=== PATIENT | male | born 1955 | race Two or more races ===

== ENCOUNTER 2022-09-18 17:29 | Inpatient (IN) | payer BC, OTHER ==
[~2022-09-18] VITALS: Ht 182.9 cm; Wt 77.1 kg
--- NOTE | 2022-09-18 18:00 | NUR ---
PT PTU ON BED, PUT ON MONITOR AND PULSE . 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 PT NOT IN DISTRESS AOX4. AT BED SIDE FOR EVAL
[2022-09-18] MEDS ORDERED: ASCO-352 PO (18:43)
[2022-09-18] MEDS ORDERED: LEVA0.6320 IH (18:43)
[2022-09-18] MEDS ORDERED: ACET-868 PO (18:43)
[2022-09-18] MEDS ORDERED: ENOX40DI SQ (18:43)
[2022-09-18] MEDS ORDERED: SENN-261 PO (18:43)
[2022-09-18] MEDS ORDERED: AMIN30LI2 PO (18:43)
[2022-09-18] MEDS ORDERED: PANT40TA2 PO (18:43)
[2022-09-18] MEDS ORDERED: INSU100V27 SQ (18:43)
[2022-09-18] MEDS ORDERED: NA P133E RC (18:43)
[2022-09-18] MEDS ORDERED: MAGN400T26 PO (18:43)
[2022-09-18] MEDS ORDERED: DOCU-141 PO (18:43)
[2022-09-18] MEDS ORDERED: HYDR-4303 PO (18:43)
[2022-09-18] MEDS ORDERED: CALC1TAB30 PO (18:43)
[2022-09-18] MEDS ORDERED: INSU100V7 SQ (18:43)
[2022-09-18] MEDS ORDERED: SUCR1TAB PO (18:43)
[2022-09-18] MEDS ORDERED: AMOX1TAB16 PO (18:43)
[2022-09-18] MEDS ORDERED: MAGN400O6 PO (18:43)
[2022-09-18] MEDS ORDERED: MULT-24 PO (18:43)
[2022-09-18] MEDS ORDERED: BISA10SU11 RC (18:43)
[2022-09-18] MEDS ORDERED: ACET-2605 PO (18:43)
--- NOTE | 2022-09-18 19:01 | NUR ---
iv inserted bld drawn sent to lab
--- NOTE | 2022-09-18 19:02 | NUR ---
covid swab done sent to lab
--- NOTE | 2022-09-18 19:18 | NUR ---
MOVE SHEET SUBMITTED.
[2022-09-18 19:50] LABS: BASOPHILS # (AUTO) 0.1 K/uL (0.0-0.2); EOSINOPHILS % (AUTO) 2.9 % (0.0-6.0); HEMATOCRIT 27 % (39-51); HEMOGLOBIN 8.8 g/dL (13.5-17.5); LYMPHOCYTES # (AUTO) 1.1 K/uL (0.8-4.8); LYMPHOCYTES % (AUTO) 16.6 % (20.0-44.0); MEAN CORPUSCULAR HGB CONC 33 g/dl (31.0-36.0); MEAN CORPUSCULAR VOLUME 85 fL (80-96); MONOCYTES # (AUTO) 0.7 K/uL (0.1-1.30); MONOCYTES % (AUTO) 9.6 % (2.0-12.0); NEUTROPHILS # (AUTO) 4.8 K/uL (1.8-8.9); NEUTROPHILS % (AUTO) 69.9 % (43.0-81.0); PLATELET COUNT (AUTO) 311 K/uL (150-450); RED BLOOD CELL COUNT(AUTO) 3.19 MIL/uL (4.5-6.0); WHITE BLOOD COUNT (AUTO) 6.9 K/uL (4.3-11.0)
--- NOTE | 2022-09-18 19:53 | NUR ---
RECIEVED PT IN ER ROOM 7, FROM [facility]. PT IS ALERT AND ORIENTED. RR EVEN AND NON LABORED. POST OP RIGHT ABOVE THE KNEE AMPUTATION C/O DRAINING AND INFECTION. CONNECTED TO MONITOR.
--- NOTE | 2022-09-18 20:25 | NUR ---
PT REQUESTING FOR PAIN MEDICATION. PAIN 6/10 ON R LEG, POST AMPUTATION. MD MADE AWARE
[2022-09-18] MEDS ORDERED: IBUPROFEN 600 MG TABLET ONE (20:45)
--- NOTE | 2022-09-18 20:51 | NUR ---
[facility] CALLED BUDGET DIRECTOR PAGED.
[2022-09-18] MEDS ORDERED: IBUPROFEN 600 MG TABLET PO ONE (21:00)
[2022-09-18 21:13] LABS: BILIRUBIN,URINE NEGATIVE (NEGATIVE); COLOR,URINE YELLOW (YELLOW); LEUKOCYTE ESTERASE ,URINE NEGATIVE (NEGATIVE); NITRITE, URINE NEGATIVE (NEGATIVE); PROTEIN,URINE NEGATIVE (NEGATIVE); UGLUCOSE 1+ mg/dL (NEGATIVE); UROBILINOGEN,URINE 0.2 EU/dL (0.2)
[2022-09-18] MEDS ORDERED: BISACODYL SUPP (10 MG) 10 MG/SUPP.RECT SUPP.RECT RC PRN (21:30)
[2022-09-18] MEDS ORDERED: DEXTROSE 50%-WATER 50 ML DISP.SYRIN IV PRN (21:30)
[2022-09-18] MEDS ORDERED: LEVALBUTEROL HCL NEB 1.25 MG/0.5 ML VIAL.NEB NEB PRN (21:30)
[2022-09-18 21:31] LABS: ALBUMIN 2.3 g/dL (3.4-5.0); BILIRUBIN,DIRECT 0.2 mg/dL (0.0-0.2); BILIRUBIN,TOTAL 0.3 mg/dL (0.2-1.0); CALCIUM, SERUM 8.8 mg/dL (8.5-10.1); CREATININE 0.8 mg/dL (0.6-1.3); POTASSIUM 4.2 mmol/L (3.5-5.1); TOTAL PROTEIN, SERUM 7.5 g/dL (6.4-8.2)
[2022-09-18] MEDS: INSULIN GLARGINE, 100 UNIT/ML CARTRIDGE SQ SCH (22:00)
[2022-09-18] MEDS ORDERED: ONDANSETRON HCL/PF 4 MG/2 ML VIAL IVP PRN (22:00)
[2022-09-18] MEDS ORDERED: ZOLPIDEM TARTRATE 5 MG TABLET PO PRN (22:00)
[2022-09-18] MEDS: BLOOD SUGAR DIAGNOSTIC 1 EACH STRIP IN SCH (22:00)
[2022-09-18] MEDS ORDERED: MAG HYDROX/AL HYDROX/SIMETH 30 ML UDC PO PRN (22:00)
[2022-09-18] MEDS ORDERED: Z GUARD REMEDY 4 OZ OINT TP PRN (22:00)
[2022-09-18 22:20] LABS: RBC,URINE 0-2 /HPF (0-2); SQUAMOUS EPITHELIAL CELL,UR Rare /HPF (None Seen); WBC,URINE 0-2 /HPF (0-3)
[2022-09-18 22:21] LABS: BACTERIA,URINE Few /HPF (None Seen)
--- NOTE | 2022-09-18 23:07 | NUR ---
PATIENT TRANSFERRED TO [facility] WITH ALL BELONGINGS IN STABLE CONDITION
[2022-09-18 23:15] VITALS: BP 115/65
--- NOTE | 2022-09-18 23:15 | NUR ---
MS ANVIL SEATING PRESS OPERATOR NOTES REPORT RECEIVED FROM MACRINA. PATIENT TRANSFERRED FROM ER VIA GURNEY, WITH NO SIGNS OF DISTRESS. IV ACCESS ON THE RFA #22G, SALINE LOCK. ORIENTED PATIENT TO ROOM SET UP AND EDUCATED PATIENT ON THE USE OF CALL LIGHT. V/S TAKEN, STABLE AND RECORDED. SKIN ASSESSMENT DONE AND PICTURES TAKEN. ALL BELONGING CHECKED AND BELONGING LIST SIGNED. WILL CONTINUE TO MONITOR THE PATIENT AND WILL CARRY OUT ANY ACTIVE MD ORDERS.
[2022-09-18 23:20] VITALS: BP 115/65
[2022-09-18] MEDS ORDERED: VANCOMYCIN 1.5 GM in IV D5W 500ml IV ONE (23:30)
[2022-09-19] MEDS: SENNOSIDES 8.6 MG TABLET PO SCH ×2 (00:18→21:43)
[2022-09-19] MEDS: DOCUSATE SODIUM 100 MG CAPSULE PO SCH ×3 (00:18→16:09)
[2022-09-19] MEDS: INSULIN REGULAR, HUMAN 100 UNIT/ML 3 ML VIAL SQ PRN ×5 (00:48→22:02)
[2022-09-19] MEDS: ENOXAPARIN SODIUM 40 MG/0.4 ML DISP.SYRIN SQ SCH ×2 (01:08→21:42)
[2022-09-19] MEDS ORDERED: VANCOMYCIN 1 GM VIAL ONE ×2 (01:54→01:55)
[2022-09-19 05:56] LABS: BASOPHILS % (AUTO) 0.8 % (0.0-2.0); EOSINOPHILS % (AUTO) 3.3 % (0.0-6.0); HEMATOCRIT 28 % (39-51); HEMOGLOBIN 9.1 g/dL (13.5-17.5); LYMPHOCYTES # (AUTO) 0.9 K/uL (0.8-4.8); MEAN CORPUSCULAR HGB CONC 32 g/dl (31.0-36.0); MEAN CORPUSCULAR VOLUME 86 fL (80-96); MONOCYTES # (AUTO) 0.6 K/uL (0.1-1.30); MONOCYTES % (AUTO) 10.6 % (2.0-12.0); NEUTROPHILS # (AUTO) 3.6 K/uL (1.8-8.9); NEUTROPHILS % (AUTO) 68.3 % (43.0-81.0); PLATELET COUNT (AUTO) 278 K/uL (150-450); RED BLOOD CELL COUNT(AUTO) 3.28 MIL/uL (4.5-6.0); WHITE BLOOD COUNT (AUTO) 5.2 K/uL (4.3-11.0)
[2022-09-19] MEDS: ACETAMINOPHEN 325 MG TABLET PO PRN ×2 (06:08→14:39)
--- NOTE | 2022-09-19 06:20 | NUR ---
RN NOTES-TYLENOL GIVEN PATIENT C/O OF PAIN WITH 4/10 SCALE. TYLENOL 650MG TAB GIVEN PRN. WILL CONTINUE TO MONITOR THE PATIENT.
[2022-09-19 06:26] LABS: CALCIUM, SERUM 8.2 mg/dL (8.5-10.1); CREATININE 0.7 mg/dL (0.6-1.3); MAGNESIUM 1.9 mg/dL (1.8-2.4); PHOSPHORUS 4.6 mg/dL (2.5-4.9); POTASSIUM 4.2 mmol/L (3.5-5.1)
[2022-09-19] MEDS: BLOOD SUGAR DIAGNOSTIC 1 EACH STRIP IN SCH ×4 (06:30→21:57)
--- NOTE | 2022-09-19 06:59 | NUR ---
MS RN OPENING NOTES PATIENT AWAKE IN BED WATCHING TV. A/O X 4. NO S/S OF PAIN NOTED AT THIS TIME. ON ROOM AIR, BREATHING EVEN AND UNLABORED, NO DISTRESS OR SHORTNESS OF BREATH NOTED. IV ACCESS OF RFA #22G, SALINE LOCK, INTACT, PATENT AND FLUSHING WELL. ALL NEEDS ATTENDED. FALL AND SAFETY MEASURES MAINTAINED. WILL ENDORSE TO THE NEXT SHIFT.
--- NOTE | 2022-09-19 07:20 | NUR ---
MS RN OPENING NOTES PATIENT AWAKE IN BED WATCHING TV. A/O X 4. NO S/S OF PAIN NOTED AT THIS TIME. ON ROOM AIR, BREATHING EVEN AND UNLABORED, NO DISTRESS OR SHORTNESS OF BREATH NOTED. IV ACCESS OF RFA #22G, SALINE LOCK, INTACT, PATENT AND FLUSHING WELL. FALL AND SAFETY MEASURES MAINTAINED. WILL CONTINUE TO MONITOR THE PATIENT FOR PERNELL.
[2022-09-19] MEDS: SUCRALFATE 1 G TABLET PO SCH ×4 (07:30→21:43)
[2022-09-19 08:00] VITALS: BP 119/76
[2022-09-19] MEDS: VANCOMYCIN 0.75 GM in IV D5W 250 ML IV SCH ×2 (08:40→16:06)
[2022-09-19] MEDS: CALCIUM CARB 600MG /VIT D 1 EACH TABLET PO SCH (08:40)
[2022-09-19] MEDS: MULTIVITAMINS,THERAGRAN 1 UDTAB TABLET PO SCH (08:40)
[2022-09-19] MEDS: ASCORBIC ACID 500 MG TABLET PO SCH (08:40)
[2022-09-19] MEDS: PANTOPRAZOLE 40 MG TABLET.DR PO SCH (08:40)
[2022-09-19] MEDS: PROSOURCE / PROSTAT (PYXIS) 30 ML UDC PO SCH (09:20)
[2022-09-19 15:07] VITALS: BP 137/88
[2022-09-19] MEDS: HYDROCODONE/APAP 5/325MG TABLET PO PRN ×2 (16:08→22:00)
--- NOTE | 2022-09-19 16:45 | NUR ---
Observed patient's dehiscence with mild drainage. While awaiting wound consult, patient strongly demanded for cleaning and dressing application. Charge nurse, made aware. Wound care done as follows as ordered by MD: cleanse with betadine solution, followed by NS, pat dry with sterile gauze, apply wet sterile gauze, apply dry sterile gauze, covered with dry kerlix dressing and finalized with paper tape
--- NOTE | 2022-09-19 18:50 | NUR ---
MS RN CLOSING NOTES PATIENT AWAKE IN BED, A/O X 4. NO S/S OF PAIN NOTED AT THIS TIME. ON ROOM AIR, BREATHING EVEN AND UNLABORED, NO DISTRESS OR SHORTNESS OF BREATH NOTED. IV ACCESS OF RFA #22G, SALINE LOCK, INTACT, PATENT AND FLUSHING WELL. ALL NEEDS ATTENDED, MEDICATIONS ORDERED GIVEN. FALL AND SAFETY MEASURES MAINTAINED. WILL BE ENDORSED TO PM SHIFT NURSE FOR PERNELL.
--- NOTE | 2022-09-19 19:46 | NUR ---
MS RN OPENING NOTES - RECEIVED PATIENT AWAKE IN BED. A/O X4. BREATHING EVEN AND NON-LABORED ON ROOM AIR. NOT IN APPARENT DISTRESS. DENIES ANY PAIN AT THIS TIME. HAS RIGHT FOREARM IV ACCESS #22G AND SALINE LOCKED. NO S/S OF INFILTRATION NOTED. RIGHT LEG STUMP DRESSING C/D/I. VERBALIZED HE FEELS LIKE HE WILL HAVE BM, ADVISED TO PRESS CALL LIGHT FOR ASSISTANCE ONCE HE IS READY. SAFETY PRECAUTIONS IN PLACE: BED LOCKED AND IN LOW POSITION, SIDE RAILS UP X2, CALL LIGHT WITHIN REACH. WILL CONTINUE PLAN OF CARE.
[2022-09-19 20:00] VITALS: BP 106/58
--- NOTE | 2022-09-19 22:00 | NUR ---
C/O BURNING AND ACHING RIGHT LEG STUMP PAIN 01/07. GAVE PRN NORCO 5-325 AND REMOVED SOME TAPE FROM THE PATIENT'S SKIN.
[2022-09-19] MEDS: INSULIN GLARGINE, 100 UNIT/ML CARTRIDGE SQ SCH (22:04)
[2022-09-20] MEDS: VANCOMYCIN 0.75 GM in IV D5W 250 ML IV SCH ×3 (00:13→16:15)
[2022-09-20] MEDS: BLOOD SUGAR DIAGNOSTIC 1 EACH STRIP IN SCH ×4 (06:46→22:44)
[2022-09-20] MEDS: INSULIN REGULAR, HUMAN 100 UNIT/ML 3 ML VIAL SQ PRN ×4 (06:48→22:44)
--- NOTE | 2022-09-20 07:14 | NUR ---
MS RN OPENING NOTES RECEIVED PATIENT AWAKE IN BED, A/Ox4, ABLE TO MAKE NEEDS KNOWN. ON ROOM AIR, NO S/S OF RESPIRATORY DISTRESS. IV ACCESS R FA #22 S/L. INTACT AND PATENT. CONTINENT USES URINAL. SKIN ISSUES: R LEG STUMP DEHISCENCE. DRESSING IN PLACE. SAFETY MEASURES IN PLACE: BED LOCKED AND IN LOWEST POSITION, HOB ELEVATED, CALL LIGHT WITHIN REACH, SIDE RAILS UPx2. WILL CONTINUE TO MONITOR.
--- NOTE | 2022-09-20 07:30 | NUR ---
MS RN CLOSING NOTES - PATIENT AWAKE, EASY TO AROUSE. ABLE TO VERBALIZE NEEDS. NO CARDIAC OR RESPIRATORY DISTRESS THROUGHOUT THE NIGHT. NO C/O PAIN. AFEBRILE. RIGHT FOREARM IV ACCESS INTACT, PATENT AND FLUSHING. WOUND DRESSING C/D/I. NEEDS MINIMAL ASSISTANCE WITH ADLS. ALL DUE MEDS GIVEN AND NEEDS ATTENDED. SAFETY PRECAUTIONS MAINTAINED. WILL ENDORSE TO NEXT SHIFT FOR PERNELL.
[2022-09-20 07:33] LABS: BASOPHILS # (AUTO) 0.1 K/uL (0.0-0.2); BASOPHILS % (AUTO) 1.1 % (0.0-2.0); HEMATOCRIT 30 % (39-51); HEMOGLOBIN 9.6 g/dL (13.5-17.5); LYMPHOCYTES # (AUTO) 1.1 K/uL (0.8-4.8); MEAN CORPUSCULAR HGB CONC 33 g/dl (31.0-36.0); MEAN CORPUSCULAR VOLUME 86 fL (80-96); MONOCYTES # (AUTO) 0.5 K/uL (0.1-1.30); MONOCYTES % (AUTO) 8.1 % (2.0-12.0); NEUTROPHILS # (AUTO) 4.9 K/uL (1.8-8.9); NEUTROPHILS % (AUTO) 72.8 % (43.0-81.0); PLATELET COUNT (AUTO) 314 K/uL (150-450); RED BLOOD CELL COUNT(AUTO) 3.45 MIL/uL (4.5-6.0); WHITE BLOOD COUNT (AUTO) 6.7 K/uL (4.3-11.0)
[2022-09-20 07:59] LABS: ALBUMIN 2.2 g/dL (3.4-5.0); BILIRUBIN,TOTAL 0.2 mg/dL (0.2-1.0); CALCIUM, SERUM 8.5 mg/dL (8.5-10.1); CREATININE 0.7 mg/dL (0.6-1.3); MAGNESIUM 1.9 mg/dL (1.8-2.4); POTASSIUM 4.1 mmol/L (3.5-5.1); TOTAL PROTEIN, SERUM 6.9 g/dL (6.4-8.2)
[2022-09-20] MEDS: PROSOURCE / PROSTAT (PYXIS) 30 ML UDC PO SCH (08:13)
[2022-09-20] MEDS: CALCIUM CARB 600MG /VIT D 1 EACH TABLET PO SCH (08:14)
[2022-09-20] MEDS: PANTOPRAZOLE 40 MG TABLET.DR PO SCH (08:14)
[2022-09-20] MEDS: MULTIVITAMINS,THERAGRAN 1 UDTAB TABLET PO SCH (08:14)
[2022-09-20] MEDS: SUCRALFATE 1 G TABLET PO SCH ×4 (08:14→22:41)
[2022-09-20] MEDS: DOCUSATE SODIUM 100 MG CAPSULE PO SCH ×2 (08:14→17:13)
[2022-09-20] MEDS: ASCORBIC ACID 500 MG TABLET PO SCH (08:14)
[2022-09-20 08:19] VITALS: BP 133/79
[2022-09-20] MEDS: HYDROCODONE/APAP 5/325MG TABLET PO PRN (08:51)
--- NOTE | 2022-09-20 09:10 | NUR ---
RN NOTES PATIENT COMPLAINED OF PAIN /10, PRN NARCO ADMINISTERED. WILL CONTINUE TO MONITOR.
[2022-09-20 15:49] VITALS: BP 136/69
--- NOTE | 2022-09-20 18:43 | NUR ---
MS RN CLOSING NOTES PATIENT AWAKE IN BED, A/Ox4, ABLE TO MAKE NEEDS KNOWN. STABLE ON ROOM AIR, NO S/S OF RESPIRATORY DISTRESS. IV ACCESS R FA #22 S/L. INTACT AND PATENT. CONTINENT USES URINAL. SKIN ISSUES: R LEG STUMP DEHISCENCE. DRESSING IN PLACE. SAFETY MEASURES MAINTAINED: BED LOCKED AND IN LOWEST POSITION, HOB ELEVATED, CALL LIGHT WITHIN REACH, SIDE RAILS UPx2. WILL ENDORSE TO NEXT SHIFT ANY PERNELL.
--- NOTE | 2022-09-20 19:30 | NUR ---
MS RN OPENING NOTES. RECEIVED PATIENT AWAKE IN BED. PATIENT IS A/O TIMES 4. NO PAIN NOTED. NO SOB NOTED. NO DISTRESS NOTED AT THIS TIME. PATIENT IS TALKING ABOUT THE WOUND CHECK WHO HAD IN THE PHYSICIAN OFFICE. ALL NEEDS ATTENDED. IV ACCESS ON THE RFA G # 22 INTACT AND SL. PATIENT HAS RIGHT LEG AMPUTATION. ALL SAFETY MEASURES IN PLACE. BED LOCKED IN THE LOWEST POSITION. CALL LIGHT AND TABLE IN EASY REACH . SIDE RAILS UP TIMES 2. WILL CONTINUE TO MONITOR CLOSELY.
[2022-09-20] MEDS: ENOXAPARIN SODIUM 40 MG/0.4 ML DISP.SYRIN SQ SCH (20:42)
[2022-09-20 21:24] VITALS: BP 114/60
[2022-09-20] MEDS: SENNOSIDES 8.6 MG TABLET PO SCH (22:41)
[2022-09-20] MEDS: INSULIN GLARGINE, 100 UNIT/ML CARTRIDGE SQ SCH (22:42)
[2022-09-21] MEDS: VANCOMYCIN 0.75 GM in IV D5W 250 ML IV SCH ×6 (03:37→16:21)
[2022-09-21] MEDS: BLOOD SUGAR DIAGNOSTIC 1 EACH STRIP IN SCH ×4 (06:17→22:45)
[2022-09-21] MEDS: INSULIN REGULAR, HUMAN 100 UNIT/ML 3 ML VIAL SQ PRN ×4 (06:18→22:47)
--- NOTE | 2022-09-21 06:52 | NUR ---
MS RN CLOSING NOTES. PATIENT AWAKE IN BED. PATIENT IS A/O TIMES 4. NO PAIN NOTED. NO SOB NOTED. NO DISTRESS NOTED AT THIS TIME. ALL NEEDS ATTENDED. IV ACCESS ON THE RFA G # 22 SITE WAS RED. REMOVE THE SITE. 1 TIME ATTEMPTED THE IV ACCESS , NOT SUCCESSFUL, ASKED ANOTHER RN TO TRY. IT WAS UNSUCCESSFUL. PATIENT REFUSED IV INSERTION FOR A WHILE. FINALLY HE ACCEPTED AND IV ACCESS DONE QAT 0300. THE ATB VANCOMYCIN GIVEN AT 0330, SINCE PATIENT REFUSED IT AT 0000. ALL DUE MEDS GIVEN ORDERED. DRESSING OF THE RIGHT LEG CHANGED AND PHOTO OF THE WOUND TAKEN IN THE CHART. PATIENT HAS RIGHT LEG AMPUTATION. ALL SAFETY MEASURES IN PLACE. BED LOCKED IN THE LOWEST POSITION. CALL LIGHT AND TABLE IN EASY REACH . SIDE RAILS UP TIMES 2. WILL ENDORSE FOR PERNELL.
[2022-09-21 07:00] VITALS: BP 116/63
--- NOTE | 2022-09-21 07:00 | NUR ---
RN OPENING NOTE- PATIENT AWAKE IN BED. PATIENT IS A/OX4, INTERACTIVE, SOME PAIN NOTED TO RT AKA. . DRESSING OF THE RIGHT AKA NEEDS REPLACED. COMPLETED, DEHISCENCE PRESENT LATERALLY APPROX 3 CM. OPEN, DRAINING SCANT AMT SEROUS DRAINAGE. NO ERYTHEMA, NO PURULENCE, NO ODOR. CLEANSED AREA W NS, NS GAUZE PACKED INTO OPENING, COVERED W 4X4, WRAPPED W KERLIX. TOLERATED WELL. ALL SAFETY MEASURES IN PLACE. BED LOCKED IN THE LOWEST POSITION. CALL LIGHT AND TABLE IN EASY REACH . SIDE RAILS UP TIMES 2. MONITOR / ASSIST
[2022-09-21] MEDS: PANTOPRAZOLE 40 MG TABLET.DR PO SCH (07:37)
[2022-09-21] MEDS: SUCRALFATE 1 G TABLET PO SCH ×4 (07:37→21:22)
[2022-09-21] MEDS: HYDROCODONE/APAP 5/325MG TABLET PO PRN ×5 (07:52→18:50)
[2022-09-21] MEDS: PROSOURCE / PROSTAT (PYXIS) 30 ML UDC PO SCH (08:54)
[2022-09-21] MEDS: CALCIUM CARB 600MG /VIT D 1 EACH TABLET PO SCH (08:54)
[2022-09-21] MEDS: MULTIVITAMINS,THERAGRAN 1 UDTAB TABLET PO SCH (08:54)
[2022-09-21] MEDS: ASCORBIC ACID 500 MG TABLET PO SCH (08:54)
[2022-09-21] MEDS: DOCUSATE SODIUM 100 MG CAPSULE PO SCH ×2 (08:54→18:04)
--- NOTE | 2022-09-21 08:55 | NUR ---
WOUND CARE CONSULT: ATTEMPTED TO SEE PT FOR SKIN ASSESSMENT TWICE BUT PT HELD UP HIS HAND TO WAIT, HE WAS ON A PHONE CALL. REVIEWED CHART, NURSING DOCUMENTATION AND PHOTO WHICH INDICATES RT LEG AMPUTATION SITE WITH OPEN AREA, PRESENT ON ADMISSION. PER SILK SCREEN LAYOUT DRAFTER, WILL DEFER TO PMD FOR POSSIBLE ORTHO CONSULT. DISCUSSED SKIN PROTECTION WITH NURSING STAFF. MD IN AGREEMENT WITH PLAN OF CARE.
--- NOTE | 2022-09-21 15:42 | NUR ---
WET MACHINE TENDER- RT AKA/ WOUND DEHISCENCE / DRESSING CHANGE COMPLETED, DEHISCENCE PRESENT LATERALLY APPROX 3 CM. OPEN, DRAINING SCANT AMT SEROUS DRAINAGE. NO ERYTHEMA, NO PURULENCE, NO ODOR. CLEANSED AREA W NS, NS GAUZE PACKED INTO OPENING, COVERED W 4X4, WRAPPED W KERLIX. PT TOLERATED WELL
[2022-09-21 16:25] VITALS: BP 108/54
[2022-09-21 16:27] LABS: CALCIUM, SERUM 8.1 mg/dL (8.5-10.1); CREATININE 0.7 mg/dL (0.6-1.3); POTASSIUM 3.9 mmol/L (3.5-5.1)
--- NOTE | 2022-09-21 18:40 | NUR ---
RN CLOSING NOTE- UNCHANGED, PATIENT AWAKE IN BED. PATIENT IS A/OX4, INTERACTIVE, SOME PAIN NOTED TO RT AKA. . DRESSING ON RT AKA DEHISCENCE INTACT / DRY/ CLEAN. MEDICATED FOR PAIN, ALL SAFETY MEASURES IN PLACE. BED LOCKED IN THE LOWEST POSITION. CALL LIGHT AND TABLE IN EASY REACH . SIDE RAILS UP TIMES 2. MONITOR / ASSIST
[2022-09-21 20:00] VITALS: BP 116/73
--- NOTE | 2022-09-21 20:16 | NUR ---
MS RN OPENING NOTES. RECEIVED PATIENT AWAKE IN BED. PATIENT IS A/O TIMES 4. NO PAIN NOTED. NO SOB NOTED. NO DISTRESS NOTED AT THIS TIME. PATIENT IS TALKING ABOUT THE WOUND CHECK WHO HAD IN THE PHYSICIAN OFFICE AGAIN. ALL NEEDS ATTENDED. IV ACCESS ON THE LEFT FA G # 22 INTACT AND SL. PATIENT HAS RIGHT LEG AMPUTATION. ALL SAFETY MEASURES IN PLACE. BED LOCKED IN THE LOWEST POSITION. CALL LIGHT AND TABLE IN EASY REACH . SIDE RAILS UP TIMES 2. WILL CONTINUE TO MONITOR CLOSELY.
[2022-09-21] MEDS: SENNOSIDES 8.6 MG TABLET PO SCH (21:22)
[2022-09-21] MEDS: ENOXAPARIN SODIUM 40 MG/0.4 ML DISP.SYRIN SQ SCH (21:23)
[2022-09-21] MEDS: INSULIN GLARGINE, 100 UNIT/ML CARTRIDGE SQ SCH (22:47)
[2022-09-22] MEDS: VANCOMYCIN 0.75 GM in IV D5W 250 ML IV SCH ×3 (00:29→16:00)
[2022-09-22] MEDS: HYDROCODONE/APAP 5/325MG TABLET PO PRN ×2 (01:44→10:42)
[2022-09-22] MEDS: BLOOD SUGAR DIAGNOSTIC 1 EACH STRIP IN SCH ×3 (06:10→17:30)
[2022-09-22] MEDS: INSULIN REGULAR, HUMAN 100 UNIT/ML 3 ML VIAL SQ PRN ×2 (06:12→12:22)
--- NOTE | 2022-09-22 06:39 | NUR ---
MS RN CLOSING NOTES. PATIENT AWAKE IN BED. PATIENT IS A/O TIMES 4. NO PAIN NOTED. NO SOB NOTED. NO DISTRESS NOTED AT THIS TIME. ALL DUE MEDS GIVEN ORDERED. ALL NEEDS ATTENDED. NO IV ACCESS AT THIS TIME. INFORMED PENSION MANAGER LUIS TO GET ORDER FOR MIDLINE AWAITING FOR RESPONSE. PATIENT HAS RIGHT LEG AMPUTATION. DRESSING CHANGED. ALL SAFETY MEASURES IN PLACE. BED LOCKED IN THE LOWEST POSITION. CALL LIGHT AND TABLE IN EASY REACH . SIDE RAILS UP TIMES 2. WILL ENDORSE FOR PERNELL.
[2022-09-22 06:52] LABS: CALCIUM, SERUM 8.4 mg/dL (8.5-10.1); CREATININE 0.7 mg/dL (0.6-1.3)
[2022-09-22 07:30] VITALS: BP 144/80
--- NOTE | 2022-09-22 07:30 | NUR ---
MS RN OPENING NOTES PATIENT AWAKE IN BED, AOX4, PATIENT IS ON ROOM AIR BREATHING WITHOUT DIFFICULTY, ABLE TO MAKE NEEDS KNOWN. DENIES PAIN NOR DISCOMFORT PAIN NOTED. PATIENT HAS NO IV LINE, PATIENT IS HARDSTICK, WILL INFORM MD FOR MIDLINE INSERTION. PATIENT HAS RIGHT LEG AMPUTATION, DRESSING IS C/D/I. ALL SAFETY MEASURES IN PLACE. BED LOCKED IS LOCKED AND IN LOWEST POSITION. CALL LIGHT AND TRAY TABLE WITHIN EASY REACH, SIDE RAILS UP TIMES 2. WILL CONTINUE TO MONITOR.
[2022-09-22] MEDS: PANTOPRAZOLE 40 MG TABLET.DR PO SCH (08:01)
[2022-09-22] MEDS: SUCRALFATE 1 G TABLET PO SCH ×3 (08:01→17:30)
[2022-09-22] MEDS: CALCIUM CARB 600MG /VIT D 1 EACH TABLET PO SCH (08:39)
[2022-09-22] MEDS: MULTIVITAMINS,THERAGRAN 1 UDTAB TABLET PO SCH (08:39)
[2022-09-22] MEDS: DOCUSATE SODIUM 100 MG CAPSULE PO SCH ×2 (08:39→17:00)
[2022-09-22] MEDS: ASCORBIC ACID 500 MG TABLET PO SCH (08:39)
[2022-09-22] MEDS: PROSOURCE / PROSTAT (PYXIS) 30 ML UDC PO SCH (08:40)
--- NOTE | 2022-09-22 09:30 | NUR ---
RN NOTES - PATIENT WAS ABLE TO TOLERATE PT EXERCISES WITHOUT PAIN
--- NOTE | 2022-09-22 10:42 | NUR ---
RN NOTES - PATIENT REQUESTED FOR NORCO 5 FOR 8/10 PAIN DUE TO WOUND CARE. PATIENT WAS OFFERED IT EARLIER BEFORE WOUND CARE BUT REFUSED. WILL CONTINUE TO MONITOR.
--- NOTE | 2022-09-22 10:46 | NUR ---
RN NOTES - DR HENRY ORDERED FOR PT TO BE DC'D TO SNF WITH ORAL ANTIBIOTICS AND CANCELLED IV ATB.
[2022-09-22] MEDS: ACETAMINOPHEN 325 MG TABLET PO PRN (14:07)
--- NOTE | 2022-09-22 14:07 | NUR ---
RN NOTES - PATIENT COMPLAINING OF 7/10 PAIN, REQUESTED FOR NORCO BUT NOT DUE YET. OFFERED TYLENOL, PATIENT ACCEPTED IT - GIVEN 2 TABS OF 325 MG TYLENOL. WILL CONTINUE TO MONITOR.
[2022-09-22 16:00] VITALS: BP_SYST 104; BP_SYST 124; BP_DIAS 68; BP_DIAS 70
--- NOTE | 2022-09-22 17:15 | NUR ---
MS OVERSEER KOSHER KITCHEN NOTE PT DISCHARGED TO [facility] IN STABLE CONDITION. PT AOX4, ABLE TO MAKE NEEDS KNOWN. ON ROOM AIR,BREATHING WITHOUT ANY DIFFICULTY. NOT IN ANY SIGN OF ACUTE DISTRESS. VITAL SIGNS TAKEN AND RECORDED, STABLE. PT REFUSED TO HAVE WOUND PICTURES TAKEN HE JUST HAD IT CLEANED. DENIED PAIN NOR DISCOMFORT. ALL BELONGINGS ACCOUNTED FOR INCLUDING MONEY. FORM SIGNED. DISCHARGE INSTRUCTIONS GIVEN TO REGGIE RODRIGUEZ). MED RECONCILIATION GIVEN. NO IV ACCESS. PT LEFT THE UNIT AT 1710 VIA GURNEY ACCOMPANIED BY 2 AGENT BROKER. MD AND CHARGE NURSE AWARE OF THE DISCHARGE.
== END 2022-09-22 17:30 | DRG 500 ==
LOC: ER 18:25 → MED 22:59
PROVIDERS: ADMIT Nurse Practitioner Acute Care; ATTEND Internal Medicine
PROC: 0KBQ0ZZ Excision of Right Upper Leg Muscle, Open Approach (ICD-10-PCS; principal; 2022-09-22)
DX: T87.81 Dehiscence of amputation stump (principal); N17.0 Acute kidney failure with tubular necrosis; E44.0 Moderate protein-calorie malnutrition; L03.115 Cellulitis of right lower limb; Z20.822 Contact with and (suspected) exposure to COVID-19; K21.9 Gastro-esophageal reflux disease without esophagitis; Z89.611 Acquired absence of right leg above knee; E11.9 Type 2 diabetes mellitus without complications; Z79.51 Long term (current) use of inhaled steroids; Z79.899 Other long term (current) drug therapy; E88.09 Other disorders of plasma-protein metabolism, not elsewhere classified; D64.9 Anemia, unspecified; I10 Essential (primary) hypertension; Y83.5 Amputation of limb(s) as the cause of abnormal reaction of the patient, or of later complication, without mention of misadventure at the time of the procedure; Y92.10 Unspecified residential institution as the place of occurrence of the external cause; Z79.4 Long term (current) use of insulin
CPT/HCPCS: 36415; 80048-TC; 80053-TC; 80061-TC; 80076-TC; 80202-TC; 81001; 82962-TC; 83735-TC; 84100-TC; 85025-TC; 85730-TC; 87081-TC; 87086-TC; A4223; A6253; A6403; C9803; G0378; J1650; J1815; J3370; J7040; J7060